=== PATIENT | female | born 1990 | race Caucasian/White ===

== ENCOUNTER 2016-08-24 05:39 | Day surgery (SDC) | payer OTHER ==
[~2016-08-24] VITALS: Ht 152.4 cm; Wt 99.8 kg
[~2016-08-24 05:39] MED LIST: B COMPLETE1 EACH PO; ENDOCET 5-3251 EACH PO; FIORICET,ESG1 TABLET PO; LABETALOL HCL200 MG PO; LOVENOX100 MG/1 M SC; NO HOME MEDS; NORCO 5/3251 TABLET PO; PHENTERMINE HCL15 MG PO; PRENATAL VITAM1 EAC1 PO; Prefera-OB Plus DHA PO; SERTRALINE HCL50 MG PO; ST. JOSEPH ASPI81 MG PO; TYLENOL EXTRA500 MG PO; TYLENOL WITH C1 EACH PO; WARFARIN SODIU7.5 MG PO
[2016-08-24 06:45] VITALS: BP 146/58
[2016-08-24] MEDS ORDERED: ENDOCET 5-3251 EACH PO (08:19)
[2016-08-24] MEDS ORDERED: HEPARIN SO5000 UNITS SC (08:19)
[2016-08-24 10:30] VITALS: BP 135/81
[2016-08-24 11:13] VITALS: BP 132/82
[2016-08-24 12:14] VITALS: BP 130/81
== END 2016-08-24 12:16 | disposition home or self-care (01) ==
LOC: SDC 05:39
PROC: 0U5B8ZZ Destruction of Endometrium, Via Natural or Artificial Opening Endoscopic (ICD-10-PCS; principal; 2016-08-24)
DX: N92.0 Excessive and frequent menstruation with regular cycle (principal); I10 Essential (primary) hypertension; Z86.711 Personal history of pulmonary embolism; D68.51 Activated protein C resistance; E66.9 Obesity, unspecified; Z68.41 Body mass index [BMI] 40.0-44.9, adult; Z80.41 Family history of malignant neoplasm of ovary; Z88.0 Allergy status to penicillin
CPT/HCPCS: 88305; J1100; J1170; J1644; J1885; J2250; J3010